=== PATIENT | female | born 1980 | race Caucasian/White ===

== ENCOUNTER 2019-11-26 04:12 | Emergency (ER) | payer OTHER ==
[2019-11-26] MEDS ORDERED: DIPHENHYDRAMINE HCL 50 MG/ML VIAL IV ONE (04:43)
[2019-11-26] MEDS ORDERED: FAMOTIDINE INJ/PF 20 MG/2 ML SDV IV ONE (04:43)
[2019-11-26] MEDS ORDERED: METHYLPREDNISOLONE INJ 125 MG/2 ML SDV IV ONE (04:43)
--- NOTE | 2019-11-26 04:53 | ER Document Report ---
Entered by CECY GABRIEL SCRIBE 11/26/19 0436 Acting as scribe for:JO BERNARD IV, MD ED General - General Chief Complaint: Facial Swelling Stated Complaint: FACIAL SWELLING Primary Care Provider: JOSE LUIS HENDERSON DO [Primary Care Provider] - Follow up as needed Mode of Arrival: Ambulatory Information source: Patient Notes: This 39 year old female patient with a history of hypertension presents to the ED today with complaints right-sided facial swelling that began around 0130 this morning. Patient states that she woke up at 0130 and the right side of her lip was swollen, so she placed an ice pack on it. Patient reports that around 0330, the swelling increased to the right side of her face and that she now has difficulty swallowing. Patient notes that she takes Lisinopril. - Related Data Home Medications: lisinopril Past Medical History - General Information source: Patient - Social History Smoking Status: Never Smoker Cigarette use (# per day): No Chew tobacco use (# tins/day): No Smoking Education Provided: No Family History: Reviewed & Not Pertinent Patient has suicidal ideation: No Patient has homicidal ideation: No - Past Medical History Cardiac Medical History: Reports: Hx Hypertension Surgical Hx: Negative Review of Systems - Review of Systems Constitutional: No symptoms reported EENT: See HPI, Difficulty swallowing, Mouth swelling, Other - Right-sided facial swelling Cardiovascular: No symptoms reported Respiratory: No symptoms reported Gastrointestinal: No symptoms reported Genitourinary: No symptoms reported Female Genitourinary: No symptoms reported Musculoskeletal: No symptoms reported Skin: No symptoms reported Hematologic/Lymphatic: No symptoms reported Neurological/Psychological: No symptoms reported -: Yes All other systems reviewed and negative Physical Exam - Vital signs Vitals: Pulse Ox 99 11/26/19 04:25 - General General appearance: Alert - HEENT Head: Normocephalic, Atraumatic Eyes: Normal Pupils: PERRL Mouth/Lips: Other - Right-sided upper lip swelling. No tongue swelling. Patient is managing secretions. - Respiratory Respiratory status: No respiratory distress Chest status: Nontender Breath sounds: Normal. No: Stridor Chest palpation: Normal - Cardiovascular Rhythm: Regular Heart sounds: Normal auscultation Murmur: No Friction rub: No Gallop: None auscultated - Abdominal Inspection: Normal Distension: No distension Bowel sounds: Normal Tenderness: Nontender - Abdomen soft Organomegaly: No organomegaly - Back Back: Normal, Nontender - Extremities General upper extremity: Normal inspection General lower extremity: Normal inspection - Neurological Neuro grossly intact: Yes - Psychological Associated symptoms: Normal affect, Normal mood - Skin Skin Temperature: Warm Skin Moisture: Dry Skin Color: Normal Course - Re-evaluation Re-evalutation: 11/26/19 05:53 Patient has had slight progression of her upper lip swelling. There is no lower lip swelling. No tongue swelling is present. Patient is managing her secretions without difficulty. There is no stridor. Patient is showing no signs of respiratory difficulty. All questions were answered prior to discharge. Emergency signs and symptoms were discussed with the patient. - Vital Signs Vital signs: Temp Pulse Resp BP Pulse Ox 97.1 F 102 H 16 149/108 H 100 11/26/19 04:29 11/26/19 04:29 11/26/19 05:01 11/26/19 05:01 11/26/19 05:01 Discharge - Discharge Clinical Impression: Angioedema due to angiotensin converting enzyme inhibitor (DRU-I) Condition: Good Disposition: HOME, SELF-CARE Additional Instructions: Return to the Emergency Department without delay if any worse. Stop taking lisinopril. Contact your regular primary care provider on Thursday for 02/11/2020 to discuss using a different blood pressure medication. HOME CARE INSTRUCTIONS & INFORMATION: Thank you for choosing us for your medical needs. We hope you're satisfied with the care you received. After you leave, you must properly care for your problem and, at the same time, observe its progress. Any condition can change. Some illnesses can change rapidly over hours or days. If your condition worsens, return to the Emergency Department or see your physician promptly. ABOUT YOUR X-RAYS AND EKG'S: If you had an EKG or X-rays taken, they have been read by the Emergency Physician. The X-rays and EKG's will also be read by a Radiologist or Internal Medicine Nurse within 24 hours. If discrepancies are noted, you will be notified by telephone. Please be certain the ED has a correct telephone number & address where you can be reached. Also, realize that some fractures or abnormalities do not show up on initial X-rays. If your symptoms continue, see your physician. ABOUT YOUR LABORATORY TEST: If you had laboratory tests, the results have been reviewed by the Emergency Physician. Some test results (for example cultures) may not be available for several days. You will be contacted if any test result shows you need additional treatment. Please be certain the ED has a correct telephone number and address where you can be reached. ABOUT YOUR MEDICATIONS: You will receive instructions on how to take your medicine on the prescription label you receive. Additional information may be provided by the Pharmacy. If you have questions afterwards, call the ED for clarification or further instructions. Some prescribed medications may cause drowsiness. Do not perform tasks such as driving a car or operating machinery without consulting your Pharmacist. If you feel you need a refill of pain medication, your condition will need re-evaluation. Please do not call for a refill of any medication. ABOUT YOUR SIGNATURE: Signature of this document acknowledges to followin. Understanding that you received emergency treatment and that you may be released before al medical problems are known or treated. Please be certain the ED has a correct phone number & address where you can be reached. 2. Acknowledgement that you will arrange for follow-up care as recommended. 3. Authorization for the Emergency Physician to provide information to your follow-up Physician in order to maximize your care. AT ANY TIME, IF YOUR SYMPTOMS CHANGE SIGNIFICANTLY OR WORSEN OR YOU DEVELOP NEW SYMPTOMS, RETURN TO THE EMERGENCY DEPARTMENT IMMEDIATELY FOR RE-EVALUATION. OUR GOAL IS TO PROVIDE EXCELLENT MEDICAL CARE! WE HOPE THAT WE HAVE MET YOUR EXPECTATIONS DURING YOUR EMERGENCY DEPARTMENT VISIT AND THAT YOU FEEL YOU HAVE RECEIVED EXCELLENT CARE! Angioedema Angioedema is an allergic swelling of the soft tissues of the body. The lips and mouth are most commonly involved. Medicication allergy is a common cause, especially DRU inhibitor medicine (used for blood pressure control). Food, even something you've eaten frequently, can cause angioedema. In many cases it's not obvious what caused the swelling. Acute treatment may include adrenalin and antihistamines. If the cause is known, you must avoid this food or medicine in the future. If angioedema affects your air passages, it can be life-threatening. Return at once if you develop shortness of breath, faintness, severe pain, inability to swallow, or if swelling worsens.swelling worsens. Prescriptions: Prednisone [Deltasone 20 mg Tablet] 3 tab PO DAILY 5 Days #6 tablet Referrals: JOSE LUIS HENDERSON DO [Primary Care Provider] - Follow up as needed I personally performed the services described in the documentation, reviewed and edited the documentation which was dictated to the scribe in my presence, and it accurately records my words and actions.
[2019-11-26 06:55] VITALS: BP 140/107
== END 2019-11-26 06:50 | disposition home or self-care (01) ==
LOC: ER 04:12
DX: T46.4X5A Adverse effect of angiotensin-converting-enzyme inhibitors, initial encounter (principal); T78.3XXA Angioneurotic edema, initial encounter; R22.0 Localized swelling, mass and lump, head; I10 Essential (primary) hypertension; R13.10 Dysphagia, unspecified; Z79.899 Other long term (current) drug therapy
CPT/HCPCS: 99283; 96374; 96375; J1200; J2930; S0028